=== PATIENT | female | born 2000 | race Caucasian/White ===

== ENCOUNTER 2024-04-10 08:22 | Emergency (ER) | payer SELFPAY ==
[2024-04-10] VITALS (24 sets, daily range): BP systolic 78–142; BP diastolic 56–88; PULSE 74–106; RESP 15–17; TEMP 36.4; O2SAT 80–100
--- NOTE | ~2024-04-10 | US_ITS ---
Limited Abdominal Sonogram: Real-time sonographic imaging of the right upper quadrant was performed. Clinical History: Abdominal pain Findings: The liver appears normal with no evidence of mass lesion or bile duct dilatation. Main por kirk vein demonstrates normal direction of flow. The gallbladder is well distended, and appears normal with no evidence of gallstone or wall thickening. The common bile duct measures 3 mm. The visualize d pancreas, aorta, and IVC are unremarkable. Small to moderate amount of perihepatic free fluid prese nt. Impression: Small to moderate amount of perihepatic ascites, nonspecific. Reviewed, dictated and finalized at location M. Impression: Small to moderate amount of perihepatic ascites, nonspecific.
--- NOTE | ~2024-04-10 | US_ITS ---
US pelvic complete w TV Ordering provider: Keon Michael MD History: . pelvic pain . Comparison: None. Technique: Transabdominal and endovaginal ultrasound of the pelvis (Doppler ultrasound interrogation techniques used as needed for this exam.) FINDINGS: CERVIX: Normal. UTERUS: Measures 7.2x 3.4x 4.7 cm in length which is within normal limits and is anteverted. No myom etrial masses. ENDOMETRIUM: Normal in thickness measuring 8.36 mm. (Note: the premenopausal endometrium may measure up to 16 mm when in the secretory phase.) No endometrial masses, cysts or fluid. CUL DE SAC: Significant free fluid in the Beard's pouch. RIGHT OVARY: Normal in size measuring 2.8x 1.7x 1.9 cm. Normal echotexture. Doppler vascular flow pre sent. LEFT OVARY: Normal in size measuring 3.2x 3x 2.8 cm. Normal echotexture. Doppler vascular flow presen t. ADNEXA: The right and left adnexa shows isoechoic area with multiple small hypoechoic areas which may indicate bladder versus exudate due to infection. Further evaluation and follow-up advised. IMPRESSION: Possible hemorrhagic changes in the right and left adnexal area versus infection. Further evaluation and follow-up advised. Otherwise, normal pelvic ultrasound. Reviewed, dictated and finalized at location A. IMPRESSION: Possible hemorrhagic changes in the right and left adnexal area versus infectio n. Further evaluation and follow-up advised. Otherwise, normal pelvic ultrasoun d.
[2024-04-10 08:45] LABS: BEDSIDEPREGUCG Negative (Negative)
[2024-04-10 08:50] LABS: Basophils Absolute Auto 0.1 K/mm3 (0.0-0.1); Basophils Percent Auto 0.6 % (0.2-1.2); Eosinophils Absolute Auto 0.1 K/mm3 (0-0.3); Eosinophils Percent Auto 1.6 % (0-4.4); Hematocrit 38.7 % (37.0-47.0); Hemoglobin 13.1 g/dL (12.0-15.0); Immature Granulocyte Absolute 0.03 K/mm3 (0.00-0.031); Immature Granulocyte Percent A 0.4 % (0-0.5); Lymphocytes Absolute Auto 1.84 K/mm3 (0.9-3.2); Lymphocytes Percent Auto 23.2 % (18.3-44.2); Mean Corpuscular HGB Conc 33.9 g/dl (32-36); Mean Corpuscular Hemoglobin 30.6 pg (26-34); Mean Corpuscular Volume 90.4 fl (80-100); Mean Platelet Volume 10.3 fl (7.4-10.4); Monocytes Absolute Auto 0.5 K/mm3 (0.1-0.6); Monocytes Percent Auto 5.9 % (2.6-8.5); Neutrophils Absolute Auto 5.4 K/mm3 (1.3-6.7); Neutrophils Percent Auto 68.3 % (45.5-73.1); Platelet Count Result 203 k/mm3 (150-375); Red Blood Count 4.28 M/mm3 (4.2-5.4); Red Cell Distribution Width 12.3 % (11.5-14.5); White Blood Count 7.9 K/mm3 (4.5-10.0)
[2024-04-10 08:54] LABS: Add Urine Microscopic? YES; Appearance Urine Clear (Clear); Bacteria Urine None Seen /hpf; Bilirubin Urine Negative (Negative); Blood Urine Negative (Negative); Color Urine Yellow (Yellow); Glucose Urine UA Negative (Negative); Ketones Urine 1+ mg/dL (Negative); Leukocyte Esterase Ur Negative LEU/UL (Negative); Nitrate Urine Negative (Negative); Protein Urine Trace mg/dL (Negative); RBC Urine 0-2 /hpf (0-2); Specific Grav Ur 1.037 (1.001-1.035); Squamous Epithelial Cell Urine Occasional /hpf (Few); WBC Urine 0-5 /hpf (0-3)
[2024-04-10] MEDS: ONDANSETRON INJ 4 MG/2 ML VIAL IV PUSH (09:00)
[2024-04-10] MEDS: MORPHINE SULFATE (*CRX) 4 MG/ML INJ IV PUSH ×2 (09:02→11:20)
[2024-04-10 09:03] LABS: Alanine Aminotransferase 13 U/L (6-35); Albumin Level 4.3 g/dL (3.5-5.1); Alkaline Phosphatase 56 U/L (38-126); Anion Gap 8 mmol/L (4-12); Aspartate Amino Transferase 23 U/L (14-36); Bilirubin,Total 0.8 mg/dL (0.2-1.3); Blood Urea Nitrogen 18 mg/dL (7-17); Carbon Dioxide 26 mmol/L (22-30); Chloride 102 mmol/L (98-107); Estimated CRCL calculation 117 ml/min; Estimated Glomerular Filt Rate > 60; Glucose 124 mg/dL (65-110); Lipase 31 U/L (23-300); Sodium 136 mmol/L (137-145)
--- NOTE | 2024-04-10 09:55 | ED.ABDPAIN ---
HPI - Abdominal Pain General Chief Complaint: Abdominal Pain Stated Complaint: abd pain Time Seen by Provider: 04/10/24 08:27 History of Present Illness HPI narrative: Patient is a 23-year-old female who presents ER with abdominal pain. Began last night after having intercourse. Began in her lower abdomen. It is now located in the right upper quadrant and radiates to her shoulder. Worse with any physical movement. Also worsened by increasing pressure to urinate. No history of ovarian cysts. No diarrhea. Denies dysuria or vaginal discharge/vaginal bleeding. No alleviating factors other than sitting still. Related Data Allergies Allergy/AdvReac Type Severity Reaction Status Date / Time No Known Allergies Allergy Verified 04/10/24 08:26 Review of Systems Review of Systems: All systems reviewed & are unremarkable except as noted in HPI and below Constitutional: Constitutional: Reports no additional constitutional complaints ENT: Reports system reviewed and no additional complaints, except as documented Cardiovascular: Cardiovascular: Reports no additional cardiovascular complaints Respiratory: Respiratory: Reports no additional respiratory complaints Gastrointestinal: Gastrointestinal: Reports abdominal pain, Denies nausea and Denies vomiting Musculoskeletal: Musculoskeletal: Reports no additional musculoskeletal complaints PMFSH Past Medical History Medical History (Updated 04/10/24 @ 13:19 by Keon Michael MD) Healthy female adult Surgical History Surgical History (Updated 04/10/24 @ 09:59 by Koen Michael MD) No history of previous surgery Exam Narrative: GENERAL: Uncomfortable-appearing, well-nourished, and in no acute distress. HEAD: Normocephalic, atraumatic. ENT: Mucous membranes moist. CHEST: Clear to auscultation. No respiratory distress. HEART: Regular rate and rhythm. Normal peripheral pulses. ABDOMEN: Soft, TTP RUQ with guarding but mild pain in RLQ as well, nondistended. EXTREMITIES: Normal range of motion. No edema. SKIN: Warm, dry, no rash. NEURO: Alert and oriented x3. PSYCH: Normal mood and affect. Course Course Emergency Course: Pain improved with morphine. Discussed imaging and lab results patient as well as gynecology. Follow-up outpatient. Discharge home. Vital Signs Vital signs: Vital Signs Temperature 97.6 F 04/10/24 08:27 Pulse Rate 106 H 04/10/24 08:27 Respiratory Rate 15 04/10/24 08:27 Blood Pressure 142/83 H 04/10/24 08:27 Pulse Oximetry 100 04/10/24 08:27 Oxygen Delivery Room Air 04/10/24 08:27 Temperature 97.6 F 04/10/24 08:27 Pulse Rate 76 04/10/24 11:15 Respiratory Rate 15 04/10/24 11:15 Blood Pressure 116/78 04/10/24 11:15 Pulse Oximetry 100 04/10/24 11:15 Oxygen Delivery Room Air 04/10/24 08:27 MDM - Abdominal Pain Lab Data 04/10/24 08:43 04/10/24 08:43 Labs: Lab Results 04/10/24 Range/Units 08:43 WBC 7.9 (4.5-10.0) K/mm3 RBC 4.28 (4.2-5.4) M/mm3 Hgb 13.1 (12.0-15.0) g/dL Hct 38.7 (37.0-47.0) % MCV 90.4 (80-100) fl MCH 30.6 (26-34) pg MCHC 33.9 (32-36) g/dl RDW 12.3 (11.5-14.5) % Plt Count 203 (150-375) k/mm3 MPV 10.3 (7.4-10.4) fl Immature Gran % (Auto) 0.4 (0-0.5) % Neut % (Auto) 68.3 (45.5-73.1) % Lymph % (Auto) 23.2 (18.3-44.2) % Williamson % (Auto) 5.9 (2.6-8.5) % Eos % (Auto) 1.6 (0-4.4) % Baso % (Auto) 0.6 (0.2-1.2) % Lymph # (Auto) 1.84 (0.9-3.2) K/mm3 Williamson # (Auto) 0.5 (0.1-0.6) K/mm3 Eos # (Auto) 0.1 (0-0.3) K/mm3 Baso # (Auto) 0.1 (0.0-0.1) K/mm3 Abs Immat Gran (auto) 0.03 (0.00-0.031) K/mm3 Absolute Neuts (auto) 5.4 (1.3-6.7) K/mm3 Absolute Nucleated RBC 0.000 (0.0-0.012) K/mm3 Nucleated RBC % 0.0 (0.0-0.2) % Sodium 136 L (137-145) mmol/L Potassium 4.0 (3.4-5.0) mmol/L Chloride 102 (98-107) mmol/L Carbon Dioxide 26 (22-30) mmol/L Anion Gap 8 (4-1
== END 2024-04-10 13:35 | disposition home or self-care (01) ==
PROVIDERS: Emergency Provider Emergency Medicine
DX: N80.9 Endometriosis, unspecified (principal); N94.89 Other specified conditions associated with female genital organs and menstrual cycle
CPT/HCPCS: 36415; 76705; 76830; 76856; 80053; 81001; 81025; 83690; 85025; 96374; 96375; 96376; 99284; J2270; J2405